=== PATIENT | male | born 1970 | race Caucasian/White ===

== ENCOUNTER 2020-05-30 09:58 | Inpatient (IN) | payer SELFPAY ==
[2020-05-30] VITALS (15 sets, daily range): BP systolic 85–145; BP diastolic 50–102
[~2020-05-30] VITALS: Ht 170 cm; Wt 90.5 kg
[~2020-05-30 09:58] MED LIST: ACHD5005 PO; CPR500T PO; PRD20T PO; RNT150T PO
[2020-05-30] MEDS ORDERED: NITROGLYCERIN 0.4 MG SL TABS BTL 25'S SL ONE (10:04)
[2020-05-30] MEDS ORDERED: ASPIRIN 81 MG CHEW (CHILDREN'S ASA) ONE (10:04)
[2020-05-30] MEDS ORDERED: HEParin 1000 UNIT/ML (10ML VIAL) FOR BOLUS ONE (10:10)
[2020-05-30] MEDS ORDERED: fentaNYL INJ 100 MCG/2 ML AMP ONE (10:10)
[2020-05-30] MEDS ORDERED: MIDAZOLAM 5 MG/5 ML (VERSED) VIAL ONE (10:10)
[2020-05-30] MEDS ORDERED: NS IV 1000 ML 1,000 ML ONE ×2 (10:11→11:02)
[2020-05-30] MEDS ORDERED: HEParin (CATH LAB) 2,000 ML IV ONE (10:11)
[2020-05-30] MEDS ORDERED: LIDOCAINE 1% INJ 20 ML 20 ML VIAL ONE (10:12)
[2020-05-30] MEDS ORDERED: NITRO DRIP 25000 MCG/D5W 250 ML IV ONE (10:12)
[2020-05-30] MEDS ORDERED: ASPIRIN 81 MG CHEW (CHILDREN'S ASA) PO ONE (10:15)
[2020-05-30] MEDS ORDERED: NITROGLYCERIN 0.4 MG SL TABS BTL 25'S SL PRN (10:15)
--- NOTE | 2020-05-30 10:16 | ED Chest Pain ---
General Stated Complaint: CP Source: patient Exam Limitations: no limitations History of Present Illness Date Seen by Provider: May 30, 2020 Time Seen by Provider: 10:06 Initial Comments Patient presents ER by private conveyance with his sister and chief complaint that about 3:00 this morning he was awoken with severe 9 out of 10 chest pain midsternum, substernal nonradiating with nausea and vomiting x1. No fever chills cough shortness of air. No history of heart disease. He has no history of hyperlipidemia, hypertension or diabetes. Primary care to Dr. Bland. Family history of coronary artery disease in his father. He smokes cigarettes Allergies and Home Medications Allergies Coded Allergies: No Known Drug Allergies (Unverified , 03/23/09) Home Medications Ciprofloxacin 500 Mg Tablet, 1 TAB PO BID Prescribed by: JENNIFER MARTINEZ on 03/26/10729 Hydrocodone Bit/Acetaminophen 1 Each Tablet, 1-2 EACH PO Q6H PRN Prescribed by: JENNIFER MARTINEZ on 03/26/10729 Ranitidine Hcl 150 Mg Tablet, 1 TAB PO BID Prescribed by: JENNIFER MARTINEZ on 03/26/10729 Patient Home Medication List Home Medication List Reviewed: Yes Review of Systems Review of Systems Constitutional: No chills, No fever, No malaise EENTM: No Blurred Vision, No Double Vision Respiratory: Denies Cough; Shortness of Air Cardiovascular: Chest Pain; Denies Lightheadedness Gastrointestinal: Denies Constipated, Denies Diarrhea; Nausea; Denies Poor Fluid Intake; Vomiting Genitourinary: Denies Burning, Denies Discharge Musculoskeletal: No back pain, No joint pain All Other Systems Reviewed Negative Unless Noted: Yes Past [id number]-Kviywn-Fszmbf Hx Patient Social History Alcohol Use: Denies Use Smoking Status: Current Everyday Smoker Type Used: Cigarettes (Half pack per day) Physical Exam Vital Signs Vital Signs - First Documented Capillary Refill : Height, Weight, BMI Height: '" Weight: lbs. oz. kg; BMI Method: General Appearance: WD/WN, Anxious HEENT: PERRL/EOMI, Pharynx Normal, Moist Mucous Membranes Neck: Normal Inspection, Non Tender Respiratory: Chest Non Tender, Lungs Clear, Normal Breath Sounds, No Accessory Muscle Use, No Respiratory Distress Cardiovascular: Regular Rate, Rhythm, No Edema, Normal Peripheral Pulses Gastrointestinal: Normal Bowel Sounds, Non Tender, Soft Neurologic/Psychiatric: Alert, Oriented x3 Skin: Normal Color, Warm/Dry Progress/Results/Core Measures Results/Orders Lab Results Laboratory Tests Test 05/30/20 10:08 Range/Units White Blood Count 13.6 H 4.3-11.0 10^3/uL Red Blood Count 5.49 4.30-5.52 10^6/uL Hemoglobin 16.7 13.3-17.7 g/dL Hematocrit 49 40-54 % Mean Corpuscular Volume 89 80-99 fL Mean Corpuscular Hemoglobin 30 25-34 pg Mean Corpuscular Hemoglobin Concent 34 32-36 g/dL Red Cell Distribution Width 11.8 10.0-14.5 % Platelet Count 285 130-400 10^3/uL Mean Platelet Volume 10.2 9.0-12.2 fL Immature Granulocyte % (Auto) 0 % Neutrophils (%) (Auto) 91 H 42-75 % Lymphocytes (%) (Auto) 5 L 12-44 % Monocytes (%) (Auto) 4 0-12 % Eosinophils (%) (Auto) 0 0-10 % Basophils (%) (Auto) 0 0-10 % Neutrophils # (Auto) 12.3 H 1.8-7.8 10^3/uL Lymphocytes # (Auto) 0.6 L 1.0-4.0 10^3/uL Monocytes # (Auto) 0.5 0.0-1.0 10^3/uL Eosinophils # (Auto) 0.0 0.0-0.3 10^3/uL Basophils # (Auto) 0.1 0.0-0.1 10^3/uL Immature Granulocyte # (Auto) 0.1 0.0-0.1 10^3/uL Neutrophils % (Manual) 90 % Lymphocytes % (Manual) 6 % Monocytes % (Manual) 3 % Eosinophils % (Manual) 0 % Basophils % (Manual) 0 % Band Neutrophils 1 % Blood Morphology Comment NORMAL Prothrombin Time 13.0 12.2-14.7 SEC INR Comment 0.9 0.8-1.4 Activated Partial Thromboplast Time 29 24-35 SEC Sodium Level 136 135-145 MMOL/L Potassium Level 3.7 3.6-5.0 MMOL/L Chloride Level 99 98-107 MMOL/L Carbon Dioxide Level 25 21-32 MMOL/L Anion Gap 12 5-14 MMOL/L Blood Urea Nitrogen 7 7-18 MG/DL Creatinine 0.93 0.60-1.30 MG/DL Estimat Glomerular Filtration Rate > 60 BUN/Creatinine Ratio 8 Glucose Level 153 H 70-105 MG/DL Calcium Level 9.4 8.5-10.1 MG/DL Corrected Calcium 8.5-10.1 MG/DL Magnesium Level 2.1 1.6-2.4 MG/DL Total Bilirubin 0.9 0.1-1.0 MG/DL Aspartate Amino Transf (AST/SGOT) 83 H 5-34 U/L Alanine Aminotransferase (ALT/SGPT) 65 H 0-55 U/L Alkaline Phosphatase 74 40-136 U/L Myoglobin 726.6 H 10.0-92.0 NG/ML Troponin I 6.809 *H <0.028 NG/ML B-Type Natriuretic Peptide 42.9 <100.0 PG/ML Total Protein 7.9 6.4-8.2 GM/DL Albumin 5.0 H 3.2-4.5 GM/DL My Orders Orders - ABDULAZIZ ELLIOTT Nitroglycerin 0.4 Mg Btl 25's (Nitrostat (05/30/20 10:04) Aspirin Chewable Tablet (Baby Aspirin Ch (05/30/20 10:04) Cbc With Automated Diff (05/30/20 10:12) Magnesium (05/30/20 10:12) Ekg Tracing (05/30/20 10:12) Comprehensive Metabolic Panel (05/30/20 10:12) Myoglobin Serum (05/30/20 10:12) Protime With Inr (05/30/20 10:12) Partial Thromboplastin Time (05/30/20 10:12) O2 (05/30/20 10:12) Monitor-Rhythm Ecg Trace Only (05/30/20 10:12) Lipid Panel (05/31/20 06:00) Ed Iv/Invasive Line Start (05/30/20 10:12) BNP (05/30/20 10:12) Troponin I (05/30/20 10:12) Nitroglycerin 0.4 Mg Btl 25's (Nitrostat (05/30/20 10:15) Heparin Injection (Heparin Injection) (05/30/20 10:15) Aspirin Chewable Tablet (Baby Aspirin Ch (05/30/20 10:15) Manual Differential (05/30/20 10:08) Medications Given in ED Current Medications Medications Dose Ordered Sig/Alvaro Route Start Time Stop Time Status Last Admin Dose Admin Aspirin 324 mg ONCE ONCE PO 05/30/20 10:15 05/30/20 10:16 DC 05/30/20 10:09 324 MG Nitroglycerin 0.4 mg UD PRN SL 05/30/20 10:15 05/30/20 10:10 0.4 MG Vital Signs/I&O 05/30/20 05/30/20 05/30/20 10:02 10:02 10:02 Temp 36.7 Pulse 88 Resp 18 B/P (MAP) 173/107 (129) Pulse Ox 97 98 O2 Delivery Nasal Cannula Nasal Cannula Nasal Cannula O2 Flow Rate 2.0 2.00 Progress Progress Note : Time: 10:10 Progress Note STEMI: Heparin 5000 units IV, aspirin and nitroglycerin ordered. Dr. May to the ER and seeing the patient. Initial ECG Impression Date: May 30, 2020 Initial ECG Impression Time: 10:10 Initial ECG Rate: 85 Initial ECG Rhythm: Normal Sinus Initial ECG Intervals: Normal Initial ECG Impression: Acute [place] Initial ECG Comparisson: No Previous ECG Available Comment Sinus rhythm with ST elevation in the anterior leads V1, V2 V3, V4, V5 and V6. Departure Communication (Admissions) Time/Spoke to Admitting Phy: 10:[address] Rivera and he is in the ER [id number] to examine the patient. Plans to take straight to [facility]. Impression Primary Impression: STEMI (ST elevation myocardial infarction) Qualified Codes: I21.3 - ST elevation (STEMI) myocardial infarction of unspecified site Disposition: 01 HOME, SELF-CARE Condition: Stable Admissions Decision to Admit Reason: Admit from ER (General) Decision to Admit/Date: May 30, 2020 Time/Decision to Admit Time: 10:10 Departure-Patient Inst. Referrals: MARY BELLE MD (PCP/Family) Primary Care Physician ABDULAZIZ ELLIOTT May 30, 2020 10:16
[2020-05-30 10:20] LABS: BASOPHILS # (AUTO) 0.1 10^3/uL (0.0-0.1); BASOPHILS % (AUTO) 0 % (0-10); EOSINOPHILS % (AUTO) 0 % (0-10); HEMATOCRIT 49 % (40-54); HEMOGLOBIN 16.7 g/dL (13.3-17.7); LYMPHOCYTES # (AUTO) 0.6 10^3/uL (1.0-4.0); LYMPHOCYTES % (AUTO) 5 % (12-44); MEAN CORPUSCULAR HEMOGLOBIN 30 pg (25-34); MEAN CORPUSCULAR HGB CONC 34 g/dL (32-36); MEAN CORPUSCULAR VOLUME 89 fL (80-99); MEAN PLATELET VOLUME 10.2 fL (9.0-12.2); MONOCYTES # (AUTO) 0.5 10^3/uL (0.0-1.0); MONOCYTES % (AUTO) 4 % (0-12); NEUTROPHILS # (AUTO) 12.3 10^3/uL (1.8-7.8); NEUTROPHILS % (AUTO) 91 % (42-75); PLATELET COUNT 285 10^3/uL (130-400); WHITE BLOOD COUNT 13.6 10^3/uL (4.3-11.0)
[2020-05-30] MEDS ORDERED: EPTIFIBATIDE BOLUS 20 ML IV ONE (10:28)
[2020-05-30] MEDS ORDERED: niCARdipine 25 MG/10 ML (CARDENE) AMP IV ONE (10:30)
[2020-05-30] MEDS ORDERED: NS (IVPB) 250 ML ONE (10:30)
[2020-05-30 10:35] LABS: INR 0.9 (0.8-1.4)
[2020-05-30 10:38] LABS: CHLORIDE 99 MMOL/L (98-107); POTASSIUM 3.7 MMOL/L (3.6-5.0); SODIUM 136 MMOL/L (135-145)
[2020-05-30 10:39] LABS: CALCIUM 9.4 MG/DL (8.5-10.1)
[2020-05-30 10:40] LABS: GLUCOSE 153 MG/DL (70-105); TOTAL PROTEIN 7.9 GM/DL (6.4-8.2)
[2020-05-30 10:41] LABS: CARBON DIOXIDE 25 MMOL/L (21-32)
[2020-05-30 10:42] LABS: BILIRUBIN,TOTAL 0.9 MG/DL (0.1-1.0)
[2020-05-30 10:43] LABS: ALKALINE PHOSPHATASE 74 U/L (40-136)
[2020-05-30 10:44] LABS: CREATININE SERUM 0.93 MG/DL (0.60-1.30); GFR ESTIMATED > 60
[2020-05-30 10:45] LABS: BUN/CREATININE RATIO 8
[2020-05-30 10:46] LABS: ALANINE AMINOTRANSFERASE 65 U/L (0-55); MAGNESIUM 2.1 MG/DL (1.6-2.4)
[2020-05-30] MEDS ORDERED: TICAGRELOR 90 MG TABLET (BRILINTA) PO ONE (10:47)
--- NOTE | 2020-05-30 11:00 | Cardiac Procedure Note-CS/ASA ---
Pre-Procedure Note Pre-Op Procedure Note H&P Reviewed The H&P was reviewed, patient examined and no changes noted. Date H&P Reviewed: May 30, 2020 Time H&P Reviewed: 10:30 Conscious Sedation Pre-Proced Time 10:30 ASA Score 3 For ASA 3 and 4: Consider anesthesia and medical clearance. Also, for patients with a history of failed moderate sedation consider anesthesia. Airway Lungs Heart ASA score ASA 1: a normal healthy patient ASA 2: a patient with a mild systemic disease (mid diabetes, controlled hypertension, obesity x ASA 3: a patient with a severe systemic disease that limits activity (angina, COPD, prior Myocardial infarction) ASA 4: a patient with an incapacitating disease that is a constant threat to life (CHF, renal failure) ASA 5: a moribund patient not expected to survive 24 hrs. (ruptured aneurysm) ASA 6: a declared brain- patient whose organs are being harvested. For emergent operations, add the letter E after the classification Mallampati Classification Grade 3 Sedation Plan Analgesia, Amnesia, Plan communicated to team members, Discussed options with patient/fam, Discussed risks with patient/fam The patient is an appropriate candidate to undergo the planned procedure, sedation, and anesthesia. The patient immediately re-assessed prior to indication. GIDEON ISIDRO MD May 30, 2020 11:00 am
--- NOTE | 2020-05-30 11:06 | Cardiology History & Physical ---
HPI-Cardiology Cardiology Consultation Date of Consultation 05/30/20 Date of Admission Time Seen by Provider: 11:01 Indication: Chest pain HPI 50 years old gentleman with no significant past medical history, strong family history of heart disease, started to have chest pain around 3 AM, came into the emergency room when the pain persisted and noted to have acute ST elevation in the anterior wall. On my evaluation he was still having mild chest pain, received some nitroglycerin, received aspirin. No palpitation, no syncope or near syncopal episodes. No claudications. PMH-Cardiology Other PMHx no known pmhx Social History Patient Social History Marrital Status: Employed/Student: employed Smoking: Current every day smoker Family Hx Other Father has history of heart attack and coronary artery disease ROS-Cardiology Review of Systems General: No Chills, No Night Sweats, No Fatigue, No Malaise, No Appetite HEENT: No Head Aches, No Visual Changes, No Eye Pain, No Ear Pain, No Dysphasia, No Sinus Congestion, No Post Nasal Drip, No Sore Throat Pulmonary: No Dyspnea, No Cough, No Pleuritic Chest Pain Cardiovascular: Chest Pain; No: Palpitations, Orthopnea, Paroxysmal Noc. Dyspnea, Edema, Lt Headedness Gastrointestinal: No: Nausea, Vomiting, Abdominal Pain, Diarrhea, Constipation, Melena, Hematochezia Genitourinary: No Dysuria, No Frequency, No Incontinence, No Hematuria, No Retention Musculoskeletal: No: neck pain, shoulder pain, arm pain, back pain, hand pain, leg pain, foot pain Neurological: No: Weakness, Numbness, Incoordination, Change in speech, Confusion, Seizures Home Medications & Allergies Allergies: Coded Allergies: No Known Drug Allergies (Unverified Allergy, Mild, 03/23/09) Home Medication List Reviewed: Yes Exam-Cardiology Exam General Appearance: Alert, Oriented X3, Cooperative, No Acute Distress HEENT: Atraumatic, PERRLA Respiratory: Clear to Auscultation, Normal Air Movement Cardiovascular: Regular Rate, Normal S1, Normal S2, No Murmurs Abdominal: Normal Bowel Sounds, Soft, No Tenderness, No Hepatosplenomegaly, No Masses Extremities: No Clubbing, No Cyanosis, No Edema, Normal Pulses, No Tenderness/Swelling Skin: No Rashes, No Breakdown, No Significant Lesion Neuro: Normal Gait, Normal Speech, Strength at 5/5 X4 Ext, Normal Tone, Sensation Intact Psych/Mental Status: Mental Status NL, Mood NL Results Labs Labs Laboratory Tests 05/30/20 10:08: White Blood Count 13.6H, Red Blood Count 5.49, Hemoglobin 16.7, Hematocrit 49, Mean Corpuscular Volume 89, Mean Corpuscular Hemoglobin 30, Mean Corpuscular Hemoglobin Concent 34, Red Cell Distribution Width 11.8, Platelet Count 285, Mean Platelet Volume 10.2, Immature Granulocyte % (Auto) 0, Neutrophils (%) (Auto) 91H, Lymphocytes (%) (Auto) 5L, Monocytes (%) (Auto) 4, Eosinophils (%) (Auto) 0, Basophils (%) (Auto) 0, Neutrophils # (Auto) 12.3H, Lymphocytes # (Auto) 0.6L, Monocytes # (Auto) 0.5, Eosinophils # (Auto) 0.0, Basophils # (Auto) 0.1, Immature Granulocyte # (Auto) 0.1, Prothrombin Time 13.0, INR Comment 0.9, Activated Partial Thromboplast Time 29, Sodium Level 136, Potassium Level 3.7, Chloride Level 99, Carbon Dioxide Level 25, Anion Gap 12, Blood Urea Nitrogen 7, Creatinine 0.93, Estimat Glomerular Filtration Rate > 60, BUN/Creatinine Ratio 8, Glucose Level 153H, Calcium Level 9.4, Corrected Calcium , Magnesium Level 2.1, Total Bilirubin 0.9, Aspartate Amino Transf (AST/SGOT) 83H, Alanine Aminotransferase (ALT/SGPT) 65H, Alkaline Phosphatase 74, Myoglobin 726.6H, B-Type Natriuretic Peptide 42.9, Total Protein 7.9, Albumin 5.0H A/P-Cardiology Admission Diagnosis Acute ST elevation myocardial infarction Coronary artery disease Congestive heart failure, acute left ventricular systolic dysfunction, ischemic cardiomyopathy, EF 30% Tobaccoism Admission Status: Inpatient Order (span 2 midnights) Reason for Inpatient Admission: Acute ST elevation myocardial infarction Assessment/Plan Acute ST elevation myocardial infarction in the anterior wall, started at 3 AM, arrived to the emergency room had 9:58 AM, reestablishment of flow at 1035. Excellent results. Status post stenting to the LAD Coronary artery disease, cardiac catheterization was done with emergency stenting to the LAD using 2 overlapping stent 2.75 x 12 and 2.5 x 23 Amy stents expanded to 3.0 proximally and 2.75 distally with excellent results, mild disease in the mid right coronary artery nonobstructive disease Congestive heart failure, acute left ventricular systolic dysfunction, anterior and apical akinesia, could be stunned myocardium, will start on beta-blockers and YUNG inhibitor and planning to place a LifeVest. Ejection fraction 30% Hypertension, starting on beta-blockers and ARB and monitor tolerance and response Hyperlipidemia, starting on Lipitor 80 mg empirically Family history of heart disease Tobaccoism, educated on smoking cessation GIDEON ISIDRO MD May 30, 2020 11:06 am
[2020-05-30] MEDS ORDERED: PATIENT MAY USE OWN MEDS, ALL PO SCH (11:15)
--- NOTE | 2020-05-30 11:19 | Cardiac Cath Report ---
Cardiac Cath Report Physician (s)/Extern (s) Physician GIDEON ISIDRO MD Pre-Procedure Diagnosis Pre-Procedure Diagnosis: Acute ST elevation myocardial infarction Post-Procedure Note Procedure Start Date: May 30, 2020 Name of Procedure: Left heart catheterization Emergency stenting to the LAD Findings/Procedure Note PROCEDURE NOTE: 50 years old gentleman with no significant past medical history, has strong family history of heart disease and an active smoker admitted with acute ST elevation myocardial infarction, Utilization Review Rn was activated and patient was brought for emergency cardiac catheterization possible PTCA. After explaining the procedure to the patient, all pros and cons were explained, all questions were answered. The patient signed the consent and then he was placed on the cardiac catheterization laboratory. Groin was prepped SL fashion local anesthesia was used. Sheath placed in the right femoral artery. Lenore right was advanced to the right coronary artery and angiogram was done, patient was given 6000 units of heparin, double bolus Integrilin, FL 3.5 guide was advanced to the left coronary system, some difficulty in intubating the left main artery then patient had total occlusion to the LAD, BMW wire was advanced through the occlusion with difficulties and I was able to park it distally then predilatation with a 2 x 20 balloon and reestablishment of flow, door to balloon time was 37 minutes. Then I proceeded with deployment of Amy 2.5 x 23 mm stent, there was distal embolization, Cardene intracoronary was given, a second proximal stent Amy 2.75 x 12 mm was deployed overlapping with the first stent, angiogram showed excellent results. Pigtail catheter was advanced to the left ventricular cavity, left ventriculogram was done. At the end of the procedure the sheath was removed. Closure device was deployed FINDINGS: Hemodynamics LV 137/24, end-diastolic pressure of 24 Aorta 140/85 mean of 107 ANATOMY: Left Main is normal Left Anterior Descending totally occluded at the midportion, successful emergency angioplasty and deployment of 2 overlapping stent Amy 2.75 x 12 mm followed by 2.5 x 23 mm with excellent results, reestablishment of flow, initially distal embolization but resolved with Cardene and Integrilin. Left Circumflex is moderate in size with mild to moderate disease nonobstructive disease Right Coronory Artery is dominant artery with mild disease in the midportion LV Gram was done showing dilated left ventricle, akinesia of the anterior wall, anterior apex and apex with severe hypokinesia, EF 30% CONCLUSION: 1. Acute ST elevation myocardial infarction with emergency catheterization and stenting to the LAD, door to balloon time 37 minutes 2. Total occlusion of the LAD, successful deployment of 2 overlapping Amy stent 2.75 x 12 mm followed by 2.5 x 23 mm expanded to 2.95 proximally and 2.75 distally with excellent results, initially there was distal embolization resolved after Integrilin and Cardene 3. Mild nonobstructive disease in the right coronary artery and circumflex artery 4. Dilated left ventricle with stunned myocardium, akinesia of the anterior wall anterior apex and apex with EF 30%, elevated left ventricular end-diastolic pressure DISCUSSION AND RECOMMENDATION: Maximize medical therapy, patient was started on Coreg, losartan, aspirin, Brilinta, Lipitor 80 mg, fish oil, planning to place a LifeVest Anesthesia Type: Conscious Sedation Estimated blood loss (mL): 35 ml Contrast Amount: 130 ml Total Radiation Dose: 1452 mGy Post-Procedure Diagnosis Post-operative diagnosis: Acute ST elevation myocardial infarction Coronary artery disease Congestive heart failure Hypertension GIDEON ISIDRO MD May 30, 2020 11:19 am
[2020-05-30 11:21] LABS: BAND NEUTROPHILS 1 %; BASOPHILS % (MANUAL) 0 %; EOSINOPHILS % (MANUAL) 0 %; LYMPHOCYTES % (MANUAL) 6 %; MONOCYTES % (MANUAL) 3 %; NEUTROPHILS % (MANUAL) 90 %
[2020-05-30 11:22] LABS: RBC MORPH NORMAL
[2020-05-30] MEDS: NS IV 1000 ML 1,000 ML IV SCH ×2 (12:17→20:19)
[2020-05-30] MEDS ORDERED: ATROPINE INJ 0.4 MG/ML SDV ONE (12:26)
[2020-05-30] MEDS ORDERED: ATROPINE INJECTION 1 MG/10 ML SYR (ABBOTT) ONE (12:27)
[2020-05-30 13:02] LABS: BASOPHILS # (AUTO) 0.1 10^3/uL (0.0-0.1); BASOPHILS % (AUTO) 0 % (0-10); EOSINOPHILS % (AUTO) 0 % (0-10); HEMATOCRIT 43 % (40-54); HEMOGLOBIN 14.4 g/dL (13.3-17.7); LYMPHOCYTES # (AUTO) 0.9 10^3/uL (1.0-4.0); LYMPHOCYTES % (AUTO) 6 % (12-44); MEAN CORPUSCULAR HEMOGLOBIN 30 pg (25-34); MEAN CORPUSCULAR HGB CONC 33 g/dL (32-36); MEAN CORPUSCULAR VOLUME 91 fL (80-99); MEAN PLATELET VOLUME 10.5 fL (9.0-12.2); MONOCYTES # (AUTO) 0.7 10^3/uL (0.0-1.0); MONOCYTES % (AUTO) 5 % (0-12); NEUTROPHILS % (AUTO) 88 % (42-75); PLATELET COUNT 286 10^3/uL (130-400); WHITE BLOOD COUNT 14.8 10^3/uL (4.3-11.0)
[2020-05-30 13:21] LABS: ALANINE AMINOTRANSFERASE 90 U/L (0-55); ALBUMIN 3.9 GM/DL (3.2-4.5); ALKALINE PHOSPHATASE 58 U/L (40-136); BUN/CREATININE RATIO 7; CALCIUM 8.2 MG/DL (8.5-10.1); CARBON DIOXIDE 23 MMOL/L (21-32); CHLORIDE 103 MMOL/L (98-107); CREATININE SERUM 0.96 MG/DL (0.60-1.30); GFR ESTIMATED > 60; GLUCOSE 138 MG/DL (70-105); SODIUM 135 MMOL/L (135-145); TOTAL PROTEIN 6.1 GM/DL (6.4-8.2)
[2020-05-30] MEDS: OMEGA 3 (FISH OIL) 1000 MG CAP PO SCH (18:38)
[2020-05-30] MEDS: CARVEDILOL 3.125 MG (COREG) TABLET PO SCH (20:20)
[2020-05-30] MEDS: TICAGRELOR 90 MG TABLET (BRILINTA) PO SCH (20:21)
[2020-05-31] VITALS (18 sets, daily range): BP systolic 91–129; BP diastolic 52–95
[2020-05-31 02:38] LABS: BASOPHILS % (AUTO) 0 % (0-10); EOSINOPHILS # (AUTO) 0.1 10^3/uL (0.0-0.3); EOSINOPHILS % (AUTO) 1 % (0-10); HEMATOCRIT 38 % (40-54); LYMPHOCYTES # (AUTO) 0.9 10^3/uL (1.0-4.0); LYMPHOCYTES % (AUTO) 8 % (12-44); MEAN CORPUSCULAR HEMOGLOBIN 31 pg (25-34); MEAN CORPUSCULAR HGB CONC 34 g/dL (32-36); MEAN CORPUSCULAR VOLUME 92 fL (80-99); MEAN PLATELET VOLUME 10.8 fL (9.0-12.2); MONOCYTES # (AUTO) 1.2 10^3/uL (0.0-1.0); MONOCYTES % (AUTO) 10 % (0-12); NEUTROPHILS # (AUTO) 9.9 10^3/uL (1.8-7.8); NEUTROPHILS % (AUTO) 81 % (42-75); PLATELET COUNT 240 10^3/uL (130-400); WHITE BLOOD COUNT 12.2 10^3/uL (4.3-11.0)
[2020-05-31 03:06] LABS: BUN/CREATININE RATIO 11; CALCIUM 8.1 MG/DL (8.5-10.1); CARBON DIOXIDE 20 MMOL/L (21-32); CHLORIDE 106 MMOL/L (98-107); CHOLESTEROL 146 MG/DL (< 200); CREATININE SERUM 0.81 MG/DL (0.60-1.30); GFR ESTIMATED > 60; GLUCOSE 149 MG/DL (70-105); HDL CHOLESTEROL 25 MG/DL (40-60); MAGNESIUM 1.9 MG/DL (1.6-2.4); POTASSIUM 3.7 MMOL/L (3.6-5.0); SODIUM 136 MMOL/L (135-145); TRIGLYCERIDES 135 MG/DL (<150); VLDL CHOLESTEROL 27 MG/DL (5-40)
[2020-05-31] MEDS: KCL 20 MEQ TAB (K-DUR) PO SCH (05:41)
[2020-05-31] MEDS: POTASSIUM CL 10MEQ/50ML IVPB 50 ML IV SCH (05:41)
[2020-05-31] MEDS: MAGNESIUM 1 GM/100 ML IVPB 100 ML IV SCH (05:41)
--- NOTE | 2020-05-31 07:36 | Diagnostic Imaging Report ---
INDICATION: Chest pain and shortness of breath. Comparison made with prior examination from 05/11/2009. FINDINGS: Heart size is normal. There are questionable patchy right upper lobe infiltrate. There is no pleural effusion or pneumothorax. Mediastinum is unremarkable. IMPRESSION: Questionable patchy right upper lobe infiltrate otherwise unremarkable. Dictated by: Dictated on workstation # [id number]
[2020-05-31] MEDS ORDERED: POTASSIUM PHOSPHATE INJ 30 MM in NS (IVPB) 250 ML IV ONE (08:00)
[2020-05-31] MEDS: NS IV 1000 ML 1,000 ML IV SCH ×2 (08:23→16:57)
--- NOTE | 2020-05-31 08:52 | Cardiology Progress Note ---
Subjective Date Seen by Provider: May 31, 2020 Time Seen by Provider: 08:50 Subjective/Events-last exam Patient is laying down in bed, feeling better, no new complaint, groin is healing well. Review of Systems General: No Chills, No Night Sweats, No Fatigue, No Malaise, No Appetite, No Other HEENT: No Head Aches, No Visual Changes, No Eye Pain, No Ear Pain, No Dyspha [place], No Sinus Congestion, No Post Nasal Drip, No Sore Throat, No Other Pulmonary: No Dyspnea, No Cough, No Pleuritic Chest Pain, No Other Cardiovascular: No: Chest Pain, Palpitations, Orthopnea, Paroxysmal Noc. Dyspnea, Edema, Lt Headedness, Other Objective-Cardiology Exam Last Set of Vital Signs Vital Signs 05/31/20 05/31/20 05/31/20 03:25 05:00 06:00 Temp 37.0 Pulse 68 Resp 20 B/P (MAP) 113/68 (83) Pulse Ox 95 O2 Delivery Room Air Capillary Refill : Less Than 3 Seconds I&O Intake and Output 05/31/20 00:00 Intake Total 390 ml Balance 390 ml Intake Oral 390 ml # Voids 2 Daily Weight Change No General: Alert, Oriented X3, Cooperative, No Acute Distress HEENT: Atraumatic, PERRLA Lungs: Clear to Auscultation, Normal Air Movement Heart: Regular Rate, Normal S1, Normal S2, No Murmurs Abdomen: Normal Bowel Sounds, Soft, No Tenderness, No Hepatosplenomegaly, No Masses Extremities: No Clubbing, No Cyanosis, No Edema, Normal Pulses, No Tenderness/ Swelling Skin: No Rashes, No Breakdown, No Significant Lesion Neuro: Normal Gait, Normal Speech, Strength at 5/5 X4 Ext, Normal Tone, Sensation Intact Psych/Mental Status: Mental Status NL, Mood NL Results Lab Laboratory Tests 05/30/20 10:08 05/30/20 12:45 05/31/20 02:09 A/P-Cardiology Admission Diagnosis Acute ST elevation myocardial infarction Coronary artery disease Congestive heart failure, acute left ventricular systolic dysfunction, ischemic cardiomyopathy, EF 30% Tobaccoism Assessment/Plan Acute ST elevation myocardial infarction in the anterior wall, status post emergency cardiac catheterization and stenting to the LAD, some distal embolization was noted, feeling well. EKG today showed persistent ST elevation with Q waves in the anterior wall, will monitor for another 24 hours and possible discharge in the morning Coronary artery disease, cardiac catheterization was done with emergency stenting to the LAD using 2 overlapping stent 2.75 x 12 and 2.5 x 23 Amy stents expanded to 3.0 proximally and 2.75 distally with excellent results, mild disease in the mid right coronary artery nonobstructive disease Congestive heart failure, acute left ventricular systolic dysfunction, anterior and apical akinesia, could be stunned myocardium, will start on beta-blockers and YUNG inhibitor and planning to place a LifeVest. Ejection fraction 30% Hypertension, started on Coreg and losartan Hyperlipidemia, LDL 109, started on Lipitor 80 mg daily and fish oil Family history of heart disease Tobaccoism, educated on smoking cessation Clinical Quality Measures AMI/AHF: ASA po Prior to arrival: GIDEON Thrasher MD May 31, 2020 08:52
[2020-05-31] MEDS: PANTOPRAZOLE 40 MG (PROTONIX) TAB PO SCH (09:14)
[2020-05-31] MEDS: TICAGRELOR 90 MG TABLET (BRILINTA) PO SCH ×2 (09:14→20:25)
[2020-05-31] MEDS: CARVEDILOL 3.125 MG (COREG) TABLET PO SCH ×2 (09:14→20:24)
[2020-05-31] MEDS: ASPIRIN E.C. 81 MG (ECOTRIN) TAB PO SCH (09:14)
[2020-05-31] MEDS: OMEGA 3 (FISH OIL) 1000 MG CAP PO SCH ×2 (09:14→16:57)
[2020-05-31] MEDS: LOSARTAN 25 MG (COZAAR) TAB PO SCH (09:15)
[2020-06-01 03:19] LABS: BASOPHILS # (AUTO) 0.1 10^3/uL (0.0-0.1); BASOPHILS % (AUTO) 0 % (0-10); EOSINOPHILS # (AUTO) 0.2 10^3/uL (0.0-0.3); EOSINOPHILS % (AUTO) 2 % (0-10); HEMATOCRIT 37 % (40-54); HEMOGLOBIN 12.2 g/dL (13.3-17.7); LYMPHOCYTES # (AUTO) 1.1 10^3/uL (1.0-4.0); LYMPHOCYTES % (AUTO) 10 % (12-44); MEAN CORPUSCULAR HEMOGLOBIN 31 pg (25-34); MEAN CORPUSCULAR HGB CONC 33 g/dL (32-36); MEAN CORPUSCULAR VOLUME 93 fL (80-99); MEAN PLATELET VOLUME 10.9 fL (9.0-12.2); MONOCYTES # (AUTO) 1.1 10^3/uL (0.0-1.0); MONOCYTES % (AUTO) 10 % (0-12); NEUTROPHILS # (AUTO) 8.8 10^3/uL (1.8-7.8); NEUTROPHILS % (AUTO) 78 % (42-75); PLATELET COUNT 198 10^3/uL (130-400); WHITE BLOOD COUNT 11.4 10^3/uL (4.3-11.0)
[2020-06-01 03:32] LABS: CHLORIDE 107 MMOL/L (98-107); POTASSIUM 3.9 MMOL/L (3.6-5.0); SODIUM 138 MMOL/L (135-145)
[2020-06-01 03:33] LABS: CALCIUM 8.4 MG/DL (8.5-10.1); GLUCOSE 103 MG/DL (70-105)
[2020-06-01 03:35] LABS: CARBON DIOXIDE 20 MMOL/L (21-32)
[2020-06-01 03:37] LABS: CREATININE SERUM 0.87 MG/DL (0.60-1.30); GFR ESTIMATED > 60; PHOSPHORUS 2.5 MG/DL (2.3-4.7)
[2020-06-01 03:38] LABS: BUN/CREATININE RATIO 15
[2020-06-01 03:40] LABS: MAGNESIUM 2.1 MG/DL (1.6-2.4)
[2020-06-01] MEDS: NS IV 1000 ML 1,000 ML IV SCH (03:42)
[2020-06-01] MEDS: MAGNESIUM 1 GM/100 ML IVPB 100 ML IV SCH (03:56)
[2020-06-01] MEDS: KCL 20 MEQ TAB (K-DUR) PO SCH (03:56)
[2020-06-01] MEDS: POTASSIUM CL 10MEQ/50ML IVPB 50 ML IV SCH (03:56)
[2020-06-01 04:09] VITALS: BP 97/58
--- NOTE | 2020-06-01 08:02 | Diagnostic Imaging Report ---
INDICATION: Dyspnea. COMPARISON: 05/31/2020 FINDINGS: Single frontal radiographic view of the chest was obtained and again demonstrates subtle patchy airspace opacities within the right midlung. This is stable. Left lung remains clear. There is no large effusion or pneumothorax on either side. Cardiac silhouette and pulmonary vasculature are within normal limits. Osseous structures show no gross acute interval change. IMPRESSION: 1. Stable subtle airspace opacity within the right midlung concerning for infiltrate. Continued follow-up is advised. Dictated by: Dictated on workstation # [id number]
[2020-06-01] MEDS: OMEGA 3 (FISH OIL) 1000 MG CAP PO SCH (08:07)
[2020-06-01] MEDS: TICAGRELOR 90 MG TABLET (BRILINTA) PO SCH (08:08)
[2020-06-01] MEDS: PANTOPRAZOLE 40 MG (PROTONIX) TAB PO SCH (08:08)
[2020-06-01] MEDS: CARVEDILOL 3.125 MG (COREG) TABLET PO SCH (08:08)
[2020-06-01] MEDS: LOSARTAN 25 MG (COZAAR) TAB PO SCH (08:08)
[2020-06-01] MEDS: ASPIRIN E.C. 81 MG (ECOTRIN) TAB PO SCH (08:08)
[2020-06-01 08:25] VITALS: BP 123/86
[2020-06-01] MEDS ORDERED: PANT40TA52 PO (14:37)
[2020-06-01] MEDS ORDERED: CARV3.122 PO (14:37)
[2020-06-01] MEDS ORDERED: ASPI-1238 PO (14:37)
[2020-06-01] MEDS ORDERED: OMG1KC PO (14:37)
[2020-06-01] MEDS ORDERED: ATOR80TA76 PO (14:37)
[2020-06-01] MEDS ORDERED: LOSA25TA41 PO (14:37)
[2020-06-01] MEDS ORDERED: TICA90TA PO (14:37)
--- NOTE | 2020-06-01 15:29 | Cardiology Progress Note ---
Cardiology SOAP Progress Note Subjective: No chest pain. Objective: I&O/Vital Signs 06/01/20 06/01/20 06/01/20 06/01/20 04:09 07:00 08:25 08:46 Temp 37.0 36.8 Pulse 72 70 74 Resp 18 16 B/P (MAP) 97/58 (71) 123/86 (98) Pulse Ox 96 97 O2 Delivery Room Air Room Air Room Air 06/01/20 12:51 Pulse 75 06/01/20 00:00 Intake Total 940 ml Balance 940 ml Constitutional: AAO x 3 Respiratory: chest is bilaterally symmetric, lungs clear to auscultation Cardiovascular: regular rate-rhythm, S1 and S2 Gastrointestional: soft, audible bowel sounds Extremities: no lower extremity edema bilateral Neurologic/Psychiatric: no motor/sensory deficits, alert, normal mood/affect, oriented x 3 Results/Procedures: Labs Laboratory Tests 06/01/20 02:50: White Blood Count 11.4H, Red Blood Count 4.00L, Hemoglobin 12.2L, Hematocrit 37L , Mean Corpuscular Volume 93, Mean Corpuscular Hemoglobin 31, Mean Corpuscular Hemoglobin Concent 33, Red Cell Distribution Width 12.4, Platelet Count 198, Mean Platelet Volume 10.9, Immature Granulocyte % (Auto) 0, Neutrophils (%) (Auto) 78H, Lymphocytes (%) (Auto) 10L, Monocytes (%) (Auto) 10, Eosinophils (%) (Auto) 2, Basophils (%) (Auto) 0, Neutrophils # (Auto) 8.8H, Lymphocytes # (Auto) 1.1, Monocytes # (Auto) 1.1H, Eosinophils # (Auto) 0.2, Basophils # (Auto) 0.1, Immature Granulocyte # (Auto) 0.1, Sodium Level 138, Potassium Level 3.9, Chloride Level 107, Carbon Dioxide Level 20L, Anion Gap 11, Blood Urea Nitrogen 13, Creatinine 0.87, Estimat Glomerular Filtration Rate > 60, BUN/Creatinine Ratio 15, Glucose Level 103, Calcium Level 8.4L, Phosphorus Level 2.5, Magnesium Level 2.1 Microbiology 05/30/20 MRSA Screen - Final, Complete MRSA not isolated A/P: Assessment/Dx: Acute ST elevation myocardial infarction Coronary artery disease Congestive heart failure, acute left ventricular systolic dysfunction, ischemic cardiomyopathy, EF 30% Tobaccoism Plan: Assessment/Plan Acute ST elevation myocardial infarction in the anterior wall, status post emergency cardiac catheterization and stenting to the LAD, some distal embolization was noted, feeling well. EKG today showed persistent ST elevation with Q waves in the anterior wall, will monitor for another 24 hours and possible discharge in the morning Coronary artery disease, cardiac catheterization was done with emergency stenting to the LAD using 2 overlapping stent 2.75 x 12 and 2.5 x 23 Amy sten ts expanded to 3.0 proximally and 2.75 distally with excellent results, mild disease in the mid right coronary artery nonobstructive disease Congestive heart failure, acute left ventricular systolic dysfunction, anterior and apical akinesia, could be stunned myocardium, will start on beta-blockers and YUNG inhibitor Ejection fraction 30%. LifeVest for primary prevention of sudden cardiac . Hypertension, started on Coreg and losartan Hyperlipidemia, LDL 109, started on Lipitor 80 mg daily and fish oil Family history of heart disease Tobaccoism, educated on smoking cessation Thank you for your consultation. Please call me if you have any questions. Mirian Orozco MD, FACP, FACC, FSCAI, FHRS, CCDS Interventional Cardiology Cardiac Electrophysiology Vascular Medicine and Endovascular Interventions Clinical Quality Measures AMI/AHF: ASA po Prior to arrival: Ulises Freed MD Jun 01, 2020 15:29
--- NOTE | 2020-06-01 15:31 | Cardiology Discharge Summary ---
Diagnosis/Chief Complaint Date of Admission May 30, 2020 at 11:08 Date of Discharge 06/01/2020 Admission Diagnosis Acute STEMI Final/Discharge Diagnosis Acute STEMI Chief Complaint/HPI Chief Complaint/HPI Acute STEMI Discharge Summary Procedures Primary PCI with drug-eluting stent to the LAD. Discharge Physical Examination Unremarkable Hospital Course Was the Problem List Reviewed?: Yes LifeVest for primary prevention of sudden cardiac . LVEF 30%. Discussion & Recommendations Discussion Medical compliance with Brilinta was discussed And with LifeVest. Follow-up with Dr. May. Follow up appt.: Dr. May. Dicharge Diet: Cardiac Diet Activity as Tolerated: Yes Home Medications Reviewed patient Home Medication Reconciliation performed by pharmacy medication reconciliations brewery technician and/or nursing. Patients Allergies have been reviewed. Discharge Home Medications: Reviewed and agree with Discharge Medication list on patient's Discharge Instruction sheet Condition at discharge Stable. Instructions to patient/family Discussed with the patient. Clinical Quality Measures AMI/AHF: ASA po Prior to arrival: Ulises Freed MD Jun 01, 2020 15:31
== END 2020-06-01 14:51 | disposition home or self-care (01) | DRG 246 ==
LOC: EDUNIT# 09:58 → ER 10:00 → CATH 10:15 → ICU 11:08 → CSD 05-31 18:25
PROVIDERS: ADMIT Internal Medicine Critical Care Medicine; ATTEND Internal Medicine Cardiovascular Disease
PROC: 027035Z Dilation of Coronary Artery, One Artery with Two Drug-eluting Intraluminal Devices, Percutaneous Approach (ICD-10-PCS; principal; 2020-05-30)
PROC: 4A023N7 Measurement of Cardiac Sampling and Pressure, Left Heart, Percutaneous Approach (ICD-10-PCS; 2020-05-30)
PROC: B2111ZZ Fluoroscopy of Multiple Coronary Arteries using Low Osmolar Contrast (ICD-10-PCS; 2020-05-30)
PROC: B2151ZZ Fluoroscopy of Left Heart using Low Osmolar Contrast (ICD-10-PCS; 2020-05-30)
DX: I21.09 ST elevation (STEMI) myocardial infarction involving other coronary artery of anterior wall (principal); I50.21 Acute systolic (congestive) heart failure; I25.10 Atherosclerotic heart disease of native coronary artery without angina pectoris; I25.5 Ischemic cardiomyopathy; F17.210 Nicotine dependence, cigarettes, uncomplicated; E78.5 Hyperlipidemia, unspecified; I11.0 Hypertensive heart disease with heart failure
CPT/HCPCS: 36415; 71045; 80048; 80053; 80061; 83735; 83874; 83880; 84100; 84484; 85007; 85025; 85027; 85610; 85730; 86850; 86900; 86901; 87081; 93005; 93041; 93458

== ENCOUNTER → 2020-08-31 | Outpatient (CLI) | payer SELFPAY ==
[~2020-08-31] MED LIST changes: +ASPI-1238 PO; +ATOR80TA76 PO; +CARV3.122 PO; +LOSA25TA41 PO; +OMG1KC PO; +PANT40TA52 PO; +TICA90TA PO
== END ==
LOC: CARD 10:00
PROVIDERS: ATTEND Internal Medicine Cardiovascular Disease
DX: I11.9 Hypertensive heart disease without heart failure (principal); I34.0 Nonrheumatic mitral (valve) insufficiency
CPT/HCPCS: 93306

== ENCOUNTER → 2020-11-02 | Outpatient (CLI) | payer SELFPAY | LOC: CARD 11:00 | PROVIDERS: ATTEND Internal Medicine Cardiovascular Disease | DX: I11.9 Hypertensive heart disease without heart failure (principal); I34.0 Nonrheumatic mitral (valve) insufficiency | CPT/HCPCS: 93306 ==

== ENCOUNTER 2021-01-30 09:41 | Outpatient (RCR) | payer OTHER ==
[2020-11-06 10:07] LABS: INR 0.8 (0.8-1.4); PROTHROMBIN TIME PATIENT 11.9 SEC (12.2-14.7)
[2020-11-08 09:21] LABS: INR 0.9 (0.8-1.4); PROTHROMBIN TIME PATIENT 12.4 SEC (12.2-14.7)
[2020-11-09 09:39] LABS: INR 0.9 (0.8-1.4)
[2020-11-12 09:01] LABS: INR 1.1 (0.8-1.4); PROTHROMBIN TIME PATIENT 14.2 SEC (12.2-14.7)
[2020-11-15 09:04] LABS: PROTHROMBIN TIME PATIENT 13.7 SEC (12.2-14.7)
[2020-11-16 09:07] LABS: PROTHROMBIN TIME PATIENT 13.8 SEC (12.2-14.7)
[2020-11-19 08:49] LABS: INR 1.1 (0.8-1.4); PROTHROMBIN TIME PATIENT 14.9 SEC (12.2-14.7)
[2020-11-21 09:10] LABS: INR 1.2 (0.8-1.4)
[2020-11-23 09:04] LABS: INR 0.9 (0.8-1.4); PROTHROMBIN TIME PATIENT 12.9 SEC (12.2-14.7)
[2020-11-28 09:35] LABS: INR 1.2 (0.8-1.4); PROTHROMBIN TIME PATIENT 15.1 SEC (12.2-14.7)
[2020-12-05 08:54] LABS: INR 2.5 (0.8-1.4); PROTHROMBIN TIME PATIENT 27.5 SEC (12.2-14.7)
[2020-12-12 08:54] LABS: PROTHROMBIN TIME PATIENT 31.1 SEC (12.2-14.7)
[2020-12-19 08:46] LABS: INR 1.1 (0.8-1.4); PROTHROMBIN TIME PATIENT 14.5 SEC (12.2-14.7)
[2021-01-02 08:49] LABS: INR 2.1 (0.8-1.4); PROTHROMBIN TIME PATIENT 23.9 SEC (12.2-14.7)
[2021-01-16 09:21] LABS: INR 3.2 (0.8-1.4); PROTHROMBIN TIME PATIENT 33.3 SEC (12.2-14.7)
[2021-01-30 10:08] LABS: INR 2.5 (0.8-1.4); PROTHROMBIN TIME PATIENT 27.4 SEC (12.2-14.7)
== END 2021-02-04 | disposition home or self-care (01) ==
LOC: LAB 09:41
PROVIDERS: ATTEND Internal Medicine Cardiovascular Disease
DX: Z51.81 Encounter for therapeutic drug level monitoring (principal); Z79.01 Long term (current) use of anticoagulants
CPT/HCPCS: 36415; 85610

== ENCOUNTER → 2021-03-07 | Outpatient (CLI) | payer OTHER ==
[2021-03-07 09:19] LABS: BILIRUBIN,TOTAL 0.7 MG/DL (0.1-1.0); CALCIUM 8.5 MG/DL (8.5-10.1); CREATININE SERUM 0.98 MG/DL (0.60-1.30); POTASSIUM 3.9 MMOL/L (3.6-5.0); TOTAL PROTEIN 6.3 GM/DL (6.4-8.2)
== END ==
LOC: LAB 08:05
PROVIDERS: ATTEND Physician Assistant
DX: E78.2 Mixed hyperlipidemia (principal)
CPT/HCPCS: 36415; 80053; 80061

== ENCOUNTER → 2022-01-03 | Outpatient (CLI) | payer OTHER | LOC: CARD 10:00 | PROVIDERS: ATTEND Internal Medicine Cardiovascular Disease | DX: I34.0 Nonrheumatic mitral (valve) insufficiency (principal); I10 Essential (primary) hypertension | CPT/HCPCS: 93306 ==

== ENCOUNTER → 2022-01-13 | Outpatient (CLI) | payer OTHER ==
[~2022-01-13] MED LIST changes: +CATHETER FLUSH 10 ML SYR IVP PRN; +REGADENOSON 0.4 MG/5 ML SYR (LEXISCAN) IV ONE
[2022-01-13 09:46] VITALS: BP 149/87
[2022-01-13 09:57] VITALS: BP 130/83
--- NOTE | 2022-01-13 12:01 | Cardiology Stress Test Report ---
Stress Test Report Date of Procedure/Referring: Date of Procedure: Jan 13, 2022 PCP Mary Belle MD Admitting Physician Admitting Physician: Attending Physician: Andra May MD Baseline Heart Rate: 52 Baseline Blood Pressure: Blood Pressure Systolic: 130 Blood Pressure Diastolic: 83 Baseline Vitals Vital Signs Date Time Temp Pulse Resp B/P (MAP) Pulse Ox O2 Delivery O2 Flow Rate FiO2 01/13/22 09:46 52 149/87 (107) Baseline EKG: Baseline EKG: NSR Summary After explaining the procedure to the patient, he signed a consent and then brought to the stress nuclear laboratory. Patient received 0.4 mg Lexiscan for stress test, ECG, heart rate and blood pressure were monitored continuously. Resting and stress dose of radio tracer were injected, imaging was acquired and reviewed in short axis, horizontal long axis and vertical long axis views. TID: 1.07 SSS: 40 SDS: 3 EF: 36 1. Patient was unable to exercise beyond 6 minutes on standard Michael protocol, did not achieve target heart rate, test converted to Lexiscan Myoview stress test 2. Patient tolerated Lexiscan well 3. Large area of infarction involving the mid to apical anterior wall apex and inferior apical segment with no significant reversibility 4. Diffuse left ventricular hypokinesia more pronounced at the anterior wall and apex, ejection fraction 36% Copy Copies To 1: MARY BELLE MD, BASHAR J MD Jan 13, 2022 12:01
== END ==
LOC: CARD 01-08 08:30
PROVIDERS: ATTEND Internal Medicine Cardiovascular Disease
DX: I11.9 Hypertensive heart disease without heart failure (principal)
CPT/HCPCS: 78452; 93017; A9502

== ENCOUNTER 2022-01-29 08:17 | Day surgery (SDC) | payer OTHER ==
[~2022-01-29] VITALS: Ht 170.2 cm; Wt 97.4 kg
[2022-01-29] VITALS (13 sets, daily range): BP systolic 146–175; BP diastolic 86–107
[~2022-01-29 08:17] MED LIST changes: -CATHETER FLUSH 10 ML SYR IVP PRN; -REGADENOSON 0.4 MG/5 ML SYR (LEXISCAN) IV ONE
[2022-01-29] MEDS ORDERED: LIDOCAINE 1% INJ 30 ML (XYLOCAINE) VIAL ONE (08:24)
[2022-01-29] MEDS ORDERED: NS IV 1000 ML 2,000 ML ONE (08:24)
[2022-01-29] MEDS ORDERED: ceFAZolin INJECTION 1,000 MG ONE (08:24)
[2022-01-29] MEDS ORDERED: HEParin (CATH LAB) 3,000 ML IV ONE (08:25)
[2022-01-29] MEDS ORDERED: NS IV 1000 ML 1,000 ML IV ONE (08:30)
[2022-01-29] MEDS ORDERED: ceFAZolin INJECTION 1,000 MG VIAL IV ONE (08:30)
[2022-01-29] MEDS ORDERED: CATHETER FLUSH 10 ML SYR IV PRN (08:30)
[2022-01-29] MEDS ORDERED: NS (IVPB) 50 ML ONE (08:49)
[2022-01-29 08:51] LABS: HEMATOCRIT 43 % (40-54); HEMOGLOBIN 14.9 g/dL (13.3-17.7); MEAN CORPUSCULAR HEMOGLOBIN 31 pg (25-34); MEAN CORPUSCULAR HGB CONC 35 g/dL (32-36); MEAN CORPUSCULAR VOLUME 90 fL (80-99); MEAN PLATELET VOLUME 10.6 fL (9.0-12.2); PLATELET COUNT 201 10^3/uL (130-400); WHITE BLOOD COUNT 7.8 10^3/uL (4.3-11.0)
[2022-01-29 08:52] LABS: BILIRUBIN,URINE NEGATIVE (NEGATIVE); CLARITY,URINE CLEAR; COLOR,URINE YELLOW; GLUCOSE, URINE (UA) NEGATIVE (NEGATIVE); KETONES,URINE NEGATIVE (NEGATIVE); LEUKOCYTE ESTERASE ,URINE NEGATIVE (NEGATIVE); NITRITE,URINE NEGATIVE (NEGATIVE); PH,URINE 5.5 (5-9); PROTEIN,URINE NEGATIVE (NEGATIVE)
--- NOTE | 2022-01-29 08:58 | Diagnostic Imaging Report ---
INDICATION: Coronary artery disease. FINDINGS: The lungs are clear. There is no failure, effusion, or pneumothorax. IMPRESSION: Unremarkable frontal chest. Dictated by: Dictated on workstation # [id number]
[2022-01-29 09:01] LABS: BACTERIA,URINE NEGATIVE /HPF; SQUAMOUS EPITHELIAL CELL,UR 0-2 /HPF; WBC,URINE 0-2 /HPF
[2022-01-29 09:07] LABS: INR 0.8 (0.8-1.4)
[2022-01-29 09:14] LABS: ALBUMIN 4.5 GM/DL (3.2-4.5); CALCIUM 9.3 MG/DL (8.5-10.1); CREATININE SERUM 1.18 MG/DL (0.60-1.30)
[2022-01-29] MEDS ORDERED: CARV12.53 PO (09:21)
[2022-01-29] MEDS ORDERED: AMLO-250 PO (09:21)
[2022-01-29] MEDS ORDERED: LOSA100T57 PO (09:21)
[2022-01-29] MEDS ORDERED: ATOR80TA76 PO (09:21)
--- NOTE | 2022-01-29 10:40 | Cardiac Procedure Note-CS/ASA ---
Pre-Procedure Note Pre-Op Procedure Note Date of Available H&P: Jan 16, 2022 Date H&P Reviewed: Jan 29, 2022 Time H&P Reviewed: 10:40 History & Physical: H&P Reviewed, Patient Examed, No changes noted Pre-Operative Diagnosis: CAD, CHF Conscious Sedation Pre-Proced Time 10:40 ASA Score 3 For ASA 3 and 4: Consider anesthesia and medical clearance. Also, for patients with a history of failed moderate sedation consider anesthesia. Airway Lungs Heart ASA score ASA 1: a normal healthy patient ASA 2: a patient with a mild systemic disease (mid diabetes, controlled hypertension, obesity ASA 3: a patient with a severe systemic disease that limits activity (angina, COPD, prior Myocardial infarction) ASA 4: a patient with an incapacitating disease that is a constant threat to life (CHF, renal failure) ASA 5: a moribund patient not expected to survive 24 hrs. (ruptured aneurysm) ASA 6: a declared brain- patient whose organs are being harvested. For emergent operations, add the letter E after the classification Mallampati Classification Grade 3 Sedation Plan Analgesia, Amnesia, Plan communicated to team members, Discussed options with patient/fam, Discussed risks with patient/fam The patient is an appropriate candidate to undergo the planned procedure, sedation, and anesthesia. The patient immediately re-assessed prior to indication. GIDEON ISIDRO MD Jan 29, 2022 10:40
[2022-01-29] MEDS ORDERED: fentaNYL INJ 100 MCG/2 ML AMP ONE ×2 (10:49→11:33)
[2022-01-29] MEDS ORDERED: MIDAZOLAM 5 MG/5 ML (VERSED) VIAL ONE ×2 (10:49→11:33)
[2022-01-29] MEDS ORDERED: HEParin 1000 UNIT/ML (10ML VIAL) FOR BOLUS ONE (10:49)
[2022-01-29] MEDS ORDERED: VERAPAMIL 5 MG/2 ML (CALAN) VIAL IV ONE (10:49)
[2022-01-29] MEDS ORDERED: NITRO DRIP 25000 MCG/D5W 250 ML IV ONE (10:50)
--- NOTE | 2022-01-29 11:27 | Cardiac Cath Report ---
Cardiac Cath Report Physician (s)/Pick And Shovel Man (s) Physician GIDEON ISIDRO MD Pre-Procedure Diagnosis Pre-Procedure Diagnosis: CAD, CHF Post-Procedure Note Procedure Start Date: Jan 29, 2022 Name of Procedure: Left heart catheterization Left ventriculogram Findings/Procedure Note PROCEDURE NOTE: 52-year-old gentleman with history of coronary artery disease, had congestive heart failure, ischemic in nature, maximized on medical therapy, scheduled for c ardiac catheterization done for single-chamber ICD implant. After explaining the procedure to the patient, all pros and cons were explained, all questions were answered. The patient signed the consent and then he was placed on the cardiac catheterization laboratory. Groin was prepped SL fashion local anesthesia was used. Sheath placed in the right radial artery, [place] catheter was advanced to the left ventricular cavity, left ventriculogram was done, pressure was measured, pullback LV to aorta was done. Engaged the right and left coronary system. Angiogram was done. At the end of the procedure the sheath was removed. Vascular band was used FINDINGS: Hemodynamics LV 103/15, end-diastolic pressure of 15 Aorta 95/67 mean of 80 ANATOMY: Left Main is free of obstructive disease Left Anterior Descending had a patent stent in the mid LAD with mild disease distally nonobstructive disease Left Circumflex has 50% stenosis in the mid circumflex artery nonobstructive disease Right Coronary Artery has 50% stenosis in the mid right coronary artery nonobstructive disease LV Gram was done showing prominent left ventricle with anterior wall hypokinesia, ejection fraction 35% CONCLUSION: 1. Patent stent in the mid LAD otherwise mild disease nonobstructive disease 2. Normal left ventricular size, hypokinesia of the anterior wall, ejection fraction 35% DISCUSSION AND RECOMMENDATION: Planning to proceed with single-chamber ICD, continue to maximize medical therapy Anesthesia Type: Conscious Sedation Estimated blood loss (mL): 10 ml Contrast Amount: 35 ml Total Radiation Dose: 443 mGy Post-Procedure Diagnosis Post-operative diagnosis: Coronary artery disease Congestive heart failure, chronic compensated left ventricular systolic dysfunction, ischemic cardiomyopathy, dilated cardiomyopathy Hypertension Hyperlipidemia GIDEON ISIDRO MD Jan 29, 2022 11:26
[2022-01-29] MEDS ORDERED: proPOfol 200 MG/20 ML (DIPRIVAN) VIAL IV ONE (12:14)
--- NOTE | 2022-01-29 13:12 | ICD Implantation ---
Single Chamber ICD Implant DATE OF SERVICE: 52 male SINGLE CHAMBER ICD IMPLANTATION OIL AND GAS SPECIALIST: Gideon May INDICATION: Primary prevention for severe cardiomyopathy HISTORY: ICD implantation is recommended. PROCEDURE PERFORMED: 1. Single-chamber ICD implantation. 2. DFT testing. COMPLICATIONS: None. ESTIMATED BLOOD LOSS: 20 mL. SPECIMENS: None. ANESTHESIA: Conscious sedation. ORAL ANTICOAGULATION: None. FLUOROSCOPY TIME: FLUOROSCOPY DOSE: CONTRAST DOSE: PROCEDURE DETAILS: 52-year-old gentleman with coronary artery disease, severe cardiomyopathy, on medical therapy. Repeat echo showed no improvement in left ventricular function, scheduled for single-chamber ICD implant with DFT testing for primary prevention. After all the questions were answered, an informed consent was taken. All the risks and complication were explained in detail. The patient was brought to the EP lab. The patient's right and left chest was prepped and draped in the usual sterile fashion. A 2-inch horizontal incision was made 1 cm below the clavicle and dissection carried down to the pectoralis fascia. IV antibiotics were administered prior to first incision. Under fluoroscopic guidance, access was gained in the axillary vein and a regular J-wire was placed. We then introduced a sheath into the axillary vein. A ICD lead was inserted. This is a single-coiled ICD lead. The RV lead was inserted across the tricuspid valve to an apical septal portion of the RV. The lead position was checked in BENINESE and VICENTE view. The screw was deployed and lead connected to the numerical control tool programmer. Good sensing and pacing thresholds were obtained. Diaphragmatic pacing was ruled out. The lead was secured with 2-0 Vicryl nonabsorbable sutures. The lead was secured to the underlying muscle and fascia. We then took an ICD generator and the lead was connected to the device in a hermetic fashion. The device and it was placed in the pocket. Aggressive irrigation with normal saline solution was done. Interrogation of the device revealed good integrity of the leads and connection. The wound was closed using 2 layers. The first layer was an interrupted 2-0 Vicryl. The second layer was an uninterrupted 4-0 Vicryl suture. Half inch Steri-Strips and a small dressing was then applied to the wound. DFT testing was done with anesthesia support. The induction mechanism was a T- shock. The first T-shock was at 290 milliseconds at one joule. Nonsustained VF was noted. We could not give therapy since it was nonsustained. Then, we did T shock at 300 ms was 0.6 J and it was successful in creating ventricular fibrillation, patient received single shock with 25 J and it was successful in terminating fibrillation. DEVICE INFORMATION: VISIA MRI AF Serial [id number] INTRAOPERATIVE DEVICE TESTING: Good sensing and capture activity DEVICE INTERROGATION IMMEDIATELY POSTOP: R wave measured at 9 mV, pacing impedance 589, HVB impedance 42, HVX impedance 54, pacing threshold 1.5 V at 0.4 ms PLAN: The patient will be observed for 23 hours. We will continue with two more dosages of IV antibiotics. We will check a chest x-ray and interrogate the device in the morning. An EKG will be done as well. If everything checks out, the patient will be discharged tomorrow. CONCLUSION: Successful implantation of single-chamber ICD for primary prevention Successful DFT testing FINAL DIAGNOSIS: Congestive heart failure, dilated left ventricle, chronic compensated left ventricular systolic dysfunction, ischemic cardiomyopathy Coronary artery disease Hypertension Hyperlipidemia GIDEON MAY MD Jan 29, 2022 13:12
[2022-01-29] MEDS ORDERED: PATIENT MAY USE OWN MEDS, ALL PO SCH (13:15)
[2022-01-29] MEDS ORDERED: NS IV 1000 ML 1,000 ML IV SCH (13:15)
[2022-01-29] MEDS: NS IV 1000 ML 1,000 ML IV SCH ×2 (13:26→22:09)
--- NOTE | 2022-01-29 14:21 | Anesthesia-General Post-Op ---
MAC Patient Condition Mental Status/LOC: Same as Preop Cardiovascular: Satisfactory Nausea/Vomiting: Absent Respiratory: Satisfactory Pain: Controlled Complications: Absent Post Op Complications Complications None Follow Up Care/Instructions Patient Instructions None needed. Anesthesiology Discharge Order Discharge Order Patient is doing well, no complaints, stable vital signs, no apparent adverse anesthesia problems. No complications reported per nursing. HIRA GARCIA CRNA Jan 29, 2022 14:21
[2022-01-29] MEDS: ceFAZolin INJECTION 1,000 MG in NS (IVPB) 50 ML IV SCH (18:24)
--- NOTE | 2022-01-29 18:36 | Diagnostic Imaging Report ---
INDICATION: Post pacemaker FINDINGS: Battery overlies the left chest. The pacemaker device unremarkable. There is no pneumothorax. The lungs are clear. IMPRESSION: Pacemaker placement without apparent complication or acute-appearing abnormality. Dictated by: Dictated on workstation # [id number]
[2022-01-29] MEDS ORDERED: ACETAMINOPHEN 500 MG TAB (TYLENOL) PO PRN (21:30)
[2022-01-29] MEDS ORDERED: oxyCODONE/APAP 5/325MG (PERCOCET 5) TABLET PO PRN (21:30)
[2022-01-29] MEDS ORDERED: ACETAMINOPHEN 325 MG TABLET PO PRN ×3 (23:00→23:57)
[2022-01-29] MEDS ORDERED: ACETAMINOPHEN 325 MG TABLET ONE (23:07)
[2022-01-30] VITALS: BP 146/88
[2022-01-30] MEDS: ceFAZolin INJECTION 1,000 MG in NS (IVPB) 50 ML IV SCH (03:21)
[2022-01-30 03:50] VITALS: BP 125/80
[2022-01-30 05:13] LABS: HEMATOCRIT 40 % (40-54); HEMOGLOBIN 13.5 g/dL (13.3-17.7); MEAN CORPUSCULAR HEMOGLOBIN 31 pg (25-34); MEAN CORPUSCULAR HGB CONC 34 g/dL (32-36); MEAN CORPUSCULAR VOLUME 91 fL (80-99); MEAN PLATELET VOLUME 10.5 fL (9.0-12.2); PLATELET COUNT 167 10^3/uL (130-400); WHITE BLOOD COUNT 7.7 10^3/uL (4.3-11.0)
[2022-01-30 05:33] LABS: ALBUMIN 3.9 GM/DL (3.2-4.5); POTASSIUM 3.8 MMOL/L (3.6-5.0)
[2022-01-30 05:36] LABS: TOTAL PROTEIN 6.1 GM/DL (6.4-8.2)
[2022-01-30 05:37] LABS: BILIRUBIN,TOTAL 0.9 MG/DL (0.1-1.0)
[2022-01-30 05:39] LABS: CREATININE SERUM 0.98 MG/DL (0.60-1.30)
[2022-01-30] MEDS ORDERED: CEFU500T63 PO (06:47)
--- NOTE | 2022-01-30 06:47 | Discharge Inst-Post CATH ---
Discharge Inst-CATH/EP Problems Reviewed?: Yes Post Cardiac Cath/EP D/C Inst Follow Up/Plan Appointment with Dr May in one week <b>CARDIAC CATH/EP PROCEDURE DISCHARGE INSTRUCTIONS</b> ACTIVITY * Go Home directly and rest. * Limit activity of the leg (or wrist if it was used) for 7 days including aerobics, swimming, jogging, bicycling, etc. * Restrict stair-climbing for 7 days if possible, if not, climb up with your non-cath leg, then bring together on the same step. * Avoid lifting, pushing, pulling or excessive movement of the affected extremity for 7 days. * Customary sexual activity may be resumed after 2 days-use caution not to use a position that strains or causes pain to the affected extremity. * No driving for 24 hours. * NO SMOKING. * Avoid straining for bowel movements for 7 days. * Gentle walking on level ground is allowed. * Returning to work will depend on the type of procedure and the results. Your doctor will discuss this with you. CALL YOUR DOCTOR FOR ANY OF THE FOLLOWING: *If bleeding from the puncture site occurs- Apply gentle pressure to site with clean cloth and call your doctor or EMS. * If a knot or lump forms under the skin, increases in size, or causes pain. * If bruising appears to be worsening or moving further down your leg instead of disappearing. * Temperature above 101 F. CARE OF YOUR GROIN INCISION; * Bruising or purple discoloration of the skin near the puncture site is common. * You may shower only, no bathtub bathing for 5 days. Be careful to avoid slipping as your leg may feel stiff. * If a closure device was used on your femoral artery, please see the attached guide regarding care of the device and your leg. * Leave dressing on FOR 24 hours. CARE OF YOUR WRIST INCISION; * Bruising or purple discoloration of the skin near the puncture site is common. * You may shower. * DO NOT submerge wrist. * Leave dressing on FOR 24 hours. GIDEON MAY MD Jan 30, 2022 06:47
[2022-01-30] MEDS: NS IV 1000 ML 1,000 ML IV SCH (07:48)
[2022-01-30 08:00] VITALS: BP 168/96
--- NOTE | 2022-01-30 08:52 | Cardiology Progress Note ---
Subjective Date Seen by Provider: Jan 30, 2022 Time Seen by Provider: 08:50 Subjective/Events-last exam Patient was seen at bedside, laying down comfortably, site is healing well. Review of Systems General: No Chills, No Night Sweats, No Fatigue, No Malaise, No Appetite, No Other HEENT: No Head Aches, No Visual Changes, No Eye Pain, No Ear Pain, No Dysphasia, No Sinus Congestion, No Post Nasal Drip, No Sore Throat, No Other Pulmonary: No Dyspnea, No Cough, No Pleuritic Chest Pain, No Other Cardiovascular: No: Chest Pain, Palpitations, Orthopnea, Paroxysmal Noc. Dyspnea, Edema, Lt Headedness, Other Objective-Cardiology Exam Last Set of Vital Signs Vital Signs 01/30/22 08:00 Temp 36.5 Pulse 66 Resp 16 B/P (MAP) 168/96 (120) Pulse Ox 96 O2 Delivery Room Air I&O Intake and Output 01/30/22 00:00 Intake Total 300 ml Balance 300 ml Intake Oral 300 ml # Voids 2 General: Alert, Oriented X3, Cooperative HEENT: Atraumatic, PERRLA Neck: Supple, No JVD, No Thyromegaly Lungs: Clear to Auscultation, Normal Air Movement Heart: Regular Rate, Normal S1, Normal S2, No Murmurs Abdomen: Normal Bowel Sounds, Soft, No Tenderness, No Hepatosplenomegaly, No Masses Extremities: No Clubbing, No Cyanosis, No Edema, Normal Pulses, No Tenderness/Swelling Skin: No Rashes, No Breakdown, No Significant Lesion Neuro: Normal Gait, Normal Speech, Strength at 5/5 X4 Ext, Normal Tone, Sens ation Intact Psych/Mental Status: Mental Status NL, Mood NL Results Lab Laboratory Tests 01/30/22 05:00 A/P-Cardiology Admission Diagnosis Congestive heart failure, dilated cardiomyopathy, chronic compensated left ventricular systolic dysfunction, ischemic cardiomyopathy Coronary artery disease Hypertension Hyperlipidemia Assessment/Plan Congestive heart failure, chronic left ventricular systolic dysfunction, dilated cardiomyopathy, ischemic. Cardiac catheterization was carried out on January 29, 2022 showing mild disease nonobstructive disease Status post single-chamber ICD implantation with DFT testing for primary prevention, site is healing well. Hypertension, continue current medication monitor blood pressure Hyperlipidemia, maintained on Lipitor 80 mg daily Planning for discharge today GIDEON ISIDRO MD Jan 30, 2022 08:52
[2022-01-30] MEDS ORDERED: amLODIPine 5 MG (NORVASC) TAB PO SCH (09:00)
[2022-01-30] MEDS ORDERED: LOSARTAN 100 MG (COZAAR) TABLET PO SCH (09:00)
== END 2022-01-30 08:50 | disposition home or self-care (01) ==
LOC: CATH 08:17 → CSD 13:20 → CATH 01-30 08:50
PROVIDERS: ATTEND Internal Medicine Cardiovascular Disease
DX: I25.10 Atherosclerotic heart disease of native coronary artery without angina pectoris (principal); I50.22 Chronic systolic (congestive) heart failure; I25.5 Ischemic cardiomyopathy; I42.0 Dilated cardiomyopathy; I10 Essential (primary) hypertension; Z79.899 Other long term (current) drug therapy; Z79.82 Long term (current) use of aspirin; Z87.891 Personal history of nicotine dependence; E78.2 Mixed hyperlipidemia; I65.23 Occlusion and stenosis of bilateral carotid arteries; I34.0 Nonrheumatic mitral (valve) insufficiency; I24.8 Other forms of acute ischemic heart disease
CPT/HCPCS: 33249; 71045; 80053 ×2; 80061; 81000; 85027 ×2; 85610; 85730; 87081; 93005; 93458; 93641; C1722; C1894; C1895; 36415